=== PATIENT | female | born 1995 | race Hispanic/Latino ===

== ENCOUNTER → 2024-05-28 | Outpatient (CLI) | payer BC ==
--- NOTE | 2024-05-28 12:24 | HMCIMG ---
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 FINDINGS: Uterus is 7.5 x 2.5 x 4.4 cm, endometrium appears 6 mm. There are no focal myometrial or endometrial masses. Both ovaries appear normal. There are no adnexal masses. There are no cysts. There is no free fluid in the cul-de-sac. IMPRESSION: 1. Normal pelvic sonogram.
== END | disposition home or self-care (01) ==
LOC: RAH 10:19
DX: Z80.41 Family history of malignant neoplasm of ovary (principal)
CPT/HCPCS: 76856